=== PATIENT | female | born 1965 | race Caucasian/White ===

== ENCOUNTER 2024-05-16 10:43 | Emergency (ER) | payer MEDICARE, SELFPAY ==
--- NOTE | 2024-05-16 10:52 | ECG_ITS ---
[facility]24[facility]16 Pat Name: Nicolette De Guzman Department: Room: Gender: Female Finance And Administration Manager: : 1965 Requested By: Reuben Bertrand Order Number: [id number] Esther MD: Александр Rowe M.D. Measurements Intervals Combs Rate: 87 P: 70 TN: 160 QRS: 15 QRSD: 83 T: 68 QT: 317 QTc: 383 Interpretive Statements SINUS RHYTHM LOW QRS VOLTAGE IN PRECORDIAL LEADS [QRS DEFLECTION < 1.0 mV IN CHEST LEADS] No previous ECG available for comparison Electronically Signed On 05-18-2024 16:03:28 SOCIAL MEDIA MARKETER by Александр Rowe M.D. [email or web address]
[2024-05-16 10:55] VITALS: BP 117/78; PULSE 86; RESP 20; TEMP 36.7; O2SAT 98; BMI 27.4
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
[2024-05-16 12:03] VITALS: BP 129/88; PULSE 86; RESP 16; O2SAT 97
[2024-05-16 12:55] VITALS: BP 106/74; PULSE 81; O2SAT 97
== END 2024-05-16 12:56 | disposition home or self-care (01) ==
PROVIDERS: Emergency Provider Emergency Medicine
DX: S20.212A Contusion of left front wall of thorax, initial encounter (principal); V49.40XA Driver injured in collision with unspecified motor vehicles in traffic accident, initial encounter
CPT/HCPCS: 71101; 93005; 99284

== ENCOUNTER 2024-05-28 12:10 | Emergency (ER) | payer MEDICARE, SELFPAY ==
[2024-05-28 12:23] VITALS: BP 125/86; PULSE 70; RESP 16; TEMP 36.7; O2SAT 97
[2024-05-28 12:37] VITALS: BP 142/82; PULSE 85; RESP 18; O2SAT 97
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
[2024-05-28 13:22] VITALS: BP 129/65; PULSE 81; O2SAT 96
--- NOTE | 2024-05-30 07:42 | DCPLANNER ---
jes rodríguez er f/u
== END 2024-05-28 13:30 | disposition home or self-care (01) ==
PROVIDERS: Emergency Provider Physician Assistant
DX: M25.512 Pain in left shoulder (principal); V89.2XXA Person injured in unspecified motor-vehicle accident, traffic, initial encounter
CPT/HCPCS: 99283